=== PATIENT | male | born 1990 | race Hispanic/Latino ===

== ENCOUNTER 2017-12-12 01:52 | Emergency (ER) | payer OTHER ==
[2017-12-12 02:13] VITALS: BP 135/84; PULSE 88; RESP 17; TEMP 97.5; O2SAT 96
--- NOTE | 2017-12-12 03:19 | ED PDOC ---
HPI: Back Time Seen by Provider: 12/12/17 03:00 Chief Complaint (Nursing): Back Pain Chief Complaint (Provider): back pain History Per: Patient History/Exam Limitations: no limitations Onset/Duration Of Symptoms: Days (3) Current Symptoms Are (Timing): Still Present Additional Complaint(s): 27 y/o male presents for evaluation of mid back pain x 3 days. States he first noticed pain while walking up steps. Patient states pain comes and goes, seems to be worsened by positional change. Denies fever, nausea/vomiting, chest pain, shortness of breath, palpitations, abdominal pain, dysuria, hematuria. Last dose Advil taken 12 hours ago. Past Medical History Reviewed: Historical Data, Nursing Documentation, Vital Signs Vital Signs: Last Vital Signs Temp 97.5 F L 12/12/17 02:03 Pulse 88 12/12/17 02:03 Resp 17 12/12/17 02:03 BP 135/84 12/12/17 02:03 Pulse Ox 96 12/12/17 02:03 - Medical History PMH: Kidney Stones - Surgical History Surgical History: No Surg Hx - Family History Family History: States: No Known Family Hx - Home Medications Home Medications: Ambulatory Orders Medication Instructions Recorded Cyclobenzaprine [Cyclobenzaprine 10 mg PO BID PRN #14 tab 12/12/17 HCl] Lidocaine 5% [Lidoderm] 1 patch TOP DAILY #7 patch 12/12/17 Naproxen [Naprosyn] 500 mg PO Q12 PRN #14 tablet 12/12/17 - Allergies Allergies/Adverse Reactions: Allergies Allergy/AdvReac Type Severity Reaction Status Date / Time No Known Allergies Allergy Verified 12/12/17 02:13 Review of Systems ROS Statement: Except As Marked, All Systems Reviewed And Found Negative Musculoskeletal: Positive for: Back Pain Physical Exam - Reviewed Nursing Documentation Reviewed: Yes Vital Signs Reviewed: Yes - Physical Exam Appears: Positive for: Well, Non-toxic, No Acute Distress Head Exam: Positive for: ATRAUMATIC, NORMAL INSPECTION, NORMOCEPHALIC Skin: Positive for: Normal Color Eye Exam: Positive for: Normal appearance ENT: Positive for: Normal ENT Inspection Cardiovascular/Chest: Positive for: Regular Rate, Rhythm Respiratory: Positive for: Normal Breath Sounds Gastrointestinal/Abdominal: Positive for: Normal Exam Back: Positive for: Normal Inspection. Negative for: L CVA Tenderness, R CVA Tenderness Extremity: Positive for: Normal ROM Neurologic/Psych: Positive for: Alert, Oriented (x3) - Laboratory Results Urine dip results: Negative for: Leukocyte Esterase, Blood, Nitrate, Ketones, Glucose, Bilirubin - ECG O2 Sat by Pulse Oximetry: 96 - Progress ED Course And Treament: Naproxen PO, flexeril PO On re-eval, patient reports pain has lessened Patient educated on findings, discharged with rx Naproxen, Flexeril, Lidoderm Advised warm compresses Follow up PMD within 2-3 days Return precautions given Patient demonstrates full understanding of discharge instructions Patient requires no further intervention in the ED and is stable for discharge at this time Disposition - Clinical Impression Clinical Impression: Back pain - Patient ED Disposition Is Patient to be Admitted: No Counseled Patient/Family Regarding: Studies Performed, Diagnosis, Need For Followup, Rx Given - Disposition Disposition: Routine/Home Disposition Time: 04:45 Condition: IMPROVED Prescriptions: Cyclobenzaprine [Cyclobenzaprine HCl] 10 mg PO BID PRN #14 tab PRN Reason: Muscle Spasm Lidocaine 5% [Lidoderm] 1 patch TOP DAILY #7 patch Naproxen [Naprosyn] 500 mg PO Q12 PRN #14 tablet PRN Reason: Pain, Moderate (4-7) Instructions: Upper Back Pain Forms: [employer] ([employer])
[2017-12-12] MEDS ORDERED: Naproxen 500 MG TAB PO ONE (03:41)
[2017-12-12] MEDS: Naproxen 500 MG TAB PO ONE (03:43)
== END 2017-12-12 04:59 | disposition home or self-care (01) ==
LOC: H.ER 01:52
DX: M54.9 Dorsalgia, unspecified (principal)